=== PATIENT | female | born 1940 | race Hispanic/Latino ===

== ENCOUNTER 2017-12-09 07:56 | Day surgery (SDC) | payer OTHER, MEDICARE ==
[2017-12-08] MEDS: CLINDAMYCIN 900 MG/D5% WATER 50 ML IV SCH (09:00)
[2017-12-08 16:24] LABS: BASOPHILS % (AUTO) 0.9 % (0.0-5.0); EOSINOPHILS % (AUTO) 3.2 % (0.0-8.0); HEMATOCRIT 34.5 % (36-48); LYMPHOCYTES % (AUTO) 33.5 % (21.0-51.0); MEAN CORPUSCULAR HEMOGLOBIN 32.8 pg (27.0-33.0); MEAN CORPUSCULAR HGB CONC 35.6 g/dL (32.0-36.0); MEAN CORPUSCULAR VOLUME 92.1 fL (79-99); MONOCYTES % (AUTO) 10.9 % (3.0-13.0); NEUTROPHILS % (AUTO) 51.5 % (40.0-77.0); PLATELET COUNT (AUTO) 161 K/uL (130-400); RED BLOOD CELL COUNT(AUTO) 3.75 MIL/uL (4.00-5.50); RED CELL DISTRIBUTION WIDTH 13.3 % (11.0-15.5); WHITE BLOOD COUNT (AUTO) 4.9 K/uL (4.8-10.8)
[2017-12-08 16:35] LABS: CREATININE 0.9 mg/dL (0.5-1.5); POTASSIUM 4.1 mmol/L (3.5-5.1)
[2017-12-08 16:49] VITALS: BP 189/76
[2017-12-09] VITALS (13 sets, daily range): BP systolic 124–148; BP diastolic 55–86
[~2017-12-09] VITALS: Ht 156.2 cm; Wt 93.4 kg
[~2017-12-09 07:56] MED LIST: ATEN25TA PO; CALC-1174 PO; DULO20CA17 PO; ESOM40CA PO; GEMF600T3 PO; LACT1CAP69 PO; LEVO25TA54 PO; LOSA100T29 PO; MONT10TA24 PO; OMEGA 3 ACID ETHYL ESTERS PO; RANI150C4 PO; ROSU20TA PO; SUCR1TAB2 PO; VITA400C19 PO
[2017-12-09] MEDS ORDERED: DEXAMETHASONE SOD PHOSPHATE 10MG/ML 1ML VIAL ONE (08:21)
[2017-12-09] MEDS ORDERED: MIDAZOLAM HCL 1 MG/ML 2ML VIAL ONE ×2 (08:22→09:24)
[2017-12-09] MEDS ORDERED: FENTANYL CITRATE PF 50 MCG/1 ML 2ML VIAL ONE ×2 (08:22→10:58)
[2017-12-09] MEDS ORDERED: PROPOFOL 10 MG/ML 20ML VIAL IV ONE (08:22)
[2017-12-09] MEDS ORDERED: GLYCOPYRROLATE 0.2 MG/ML 5 ML VIAL ONE (08:22)
[2017-12-09] MEDS ORDERED: LIDOCAINE PF 2% 5ML ABBOJECT ONE (08:22)
[2017-12-09] MEDS ORDERED: ROPIVACAINE 0.5% 5MG/ML 30ML IJ ONE (08:40)
[2017-12-09] MEDS ORDERED: LACTATED RINGERS 1000ML 1,000 ML IV ONE (08:56)
[2017-12-09] MEDS ORDERED: EPINEPHRINE 1 MG/ML 30ML VIAL IJ ONE (09:30)
[2017-12-09] MEDS: CLINDAMYCIN 900 MG/D5% WATER 50 ML IV SCH (09:45)
[2017-12-09] MEDS ORDERED: METOCLOPRAMIDE 10 MG/2 ML VIAL ONE (10:36)
[2017-12-09] MEDS ORDERED: SUCCINYLCHOLINE CHLORIDE 20 MG/ML 10 ML VIAL ONE (10:36)
[2017-12-09] MEDS ORDERED: ROCURONIUM BROMIDE 10MG/1ML 5ML VL ONE (10:36)
[2017-12-09] MEDS ORDERED: NEOSTIGMINE METHYLSULFATE 1MG/ML IV ONE (10:37)
[2017-12-09] MEDS ORDERED: MEPERIDINE-PF 25 MG/ML SYG ONE ×2 (11:41→11:55)
[2017-12-09] MEDS ORDERED: GABA-529 PO (12:16)
== END 2017-12-09 13:42 | disposition home or self-care (01) ==
LOC: DAH 07:56
PROVIDERS: ATTEND Orthopaedic Surgery
DX: M75.41 Impingement syndrome of right shoulder (principal); Z68.37 Body mass index [BMI] 37.0-37.9, adult; I10 Essential (primary) hypertension; K21.9 Gastro-esophageal reflux disease without esophagitis; E78.5 Hyperlipidemia, unspecified; Z85.828 Personal history of other malignant neoplasm of skin; I25.10 Atherosclerotic heart disease of native coronary artery without angina pectoris; E03.9 Hypothyroidism, unspecified; M19.90 Unspecified osteoarthritis, unspecified site; Z79.899 Other long term (current) drug therapy; G89.29 Other chronic pain; Z88.0 Allergy status to penicillin; Z98.890 Other specified postprocedural states
CPT/HCPCS: 29824; 29826; 36415; 80048; 85025; 96374; A4565; A4649 ×2; A4930; A6204; G0168; J0171; J0330; J1100; J2001; J2175 ×2; J2250 ×2; J2704; J2710; J2765; J2795; J3010 ×2; J3490 ×3; J7030; J7120